=== PATIENT | female | born 1990 | race African-American/Black ===

== ENCOUNTER 2022-04-04 23:35 | Emergency (ER) | payer MEDICAID ==
[~2022-04-04] VITALS: Ht 175.3 cm; Wt 89.8 kg
[2022-04-05] MEDS ORDERED: PROCHLORPERAZINE 10MG/2ML VIAL IV PRN (03:45)
[2022-04-05] MEDS ORDERED: ACETAMINOPHEN 650MG/20.3ML UDC PO ONE (03:45)
[2022-04-05] MEDS ORDERED: DIPHENHYDRAMINE 50MG/ML VIAL IV ONE (03:45)
[2022-04-05] MEDS ORDERED: KETOROLAC 15MG/ML VIAL IV ONE (03:45)
[2022-04-05] MEDS ORDERED: SODIUM CHLORIDE 0.9% 500 ML IV ONE (03:45)
[2022-04-05 04:26] LABS: CLARITY URINE CLOUDY (CLEAR); COLOR URINE YELLOW (YELLOW); KETONES URINE NEGATIVE (NEGATIVE); LEUKOCYTE ESTERASE URINE NEGATIVE (NEGATIVE); NITRITE URINE NEGATIVE (NEGATIVE); OCCULT BLOOD URINE NEGATIVE (NEGATIVE); PROTEIN URINE NEGATIVE (NEGATIVE); SPECIFIC GRAVITY URINE 1.017 (1.005-1.030)
[2022-04-05] MEDS ORDERED: DIPHENHYDRAMINE 50MG/ML VIAL IV NR (05:30)
[2022-04-05] MEDS: ACETAMINOPHEN 650MG/20.3ML UDC PO NR ×2 (05:30→07:06)
[2022-04-05] MEDS ORDERED: KETOROLAC 15MG/ML VIAL IV NR (05:30)
[2022-04-05 07:40] VITALS: BP 125/75
== END 2022-04-05 07:42 | disposition home or self-care (01) ==
LOC: ER 23:35
DX: G43.909 Migraine, unspecified, not intractable, without status migrainosus (principal); H53.8 Other visual disturbances; Z98.890 Other specified postprocedural states
CPT/HCPCS: 81003; 81025; 96361; 96374; 96375; 99284; J1200; J1885; J7040; Z7610